=== PATIENT | female | born 1995 | race Caucasian/White ===

== ENCOUNTER 2019-05-06 05:22 | Emergency (ER) | payer SELFPAY ==
[~2019-05-06] VITALS: Ht 157.5 cm; Wt 49.9 kg
--- NOTE | 2019-05-06 05:28 | NUR ---
PT BIB SELF C/C LOWER ABD PAIN SINCE MIDNIGHT, +N/+V, PT IS AAOX4, NOT IN RESPIRATORY DISTRESS, VS STABLE, KEPT RESTED AND COMFORTABLE, WILL CONTINUE MONITOR.
--- NOTE | 2019-05-06 05:58 | NUR ---
URINE SPECIMEN COLLECTED AND SENT TO LAB.
[2019-05-06 06:02] LABS: APPEARANCE,URINE Cloudy (CLEAR); BILIRUBIN,URINE Negative (NEGATIVE); BLOOD, URINE Negative Ery/uL (NEGATIVE); COLOR,URINE Yellow (YELLOW); KETONES,URINE Negative (NEGATIVE); LEUKOCYTE ESTERASE ,URINE Negative (NEGATIVE); NITRITE, URINE Negative (NEGATIVE); PROTEIN,URINE 30 mg/dl (NEGATIVE); UGLUCOSE Negative (NEGATIVE); UROBILINOGEN,URINE 0.2 EU/dL (0.2)
[2019-05-06 06:05] LABS: PH,URINE >9.0 (5.0-8.0)
[2019-05-06 06:16] LABS: BACTERIA,URINE Rare /HPF (None Seen); RBC,URINE 0-2 /HPF (0-2); SQUAMOUS EPITHELIAL CELL,UR Rare /HPF (None Seen); URINE AMORPHOUS PHOSPHATES Many /HPF (None Seen); WBC,URINE 0-2 /HPF (0-3)
[2019-05-06] MEDS ORDERED: MORPHINE SULFATE INJ 4 MG/ML DISP.SYRIN ONE (06:17)
[2019-05-06] MEDS ORDERED: KETOROLAC TROMETHAMINE INJ 30 MG/ML VIAL ONE (06:17)
[2019-05-06] MEDS ORDERED: ONDANSETRON HCL/PF 4 MG/2 ML VIAL ONE (06:17)
[2019-05-06 06:27] LABS: BASOPHILS % (AUTO) 0.5 % (0.0-2.0); HEMATOCRIT 44 % (33-45); HEMOGLOBIN 15.2 g/dL (11.5-14.8); LYMPHOCYTES # (AUTO) 1.4 /CMM (0.8-4.8); LYMPHOCYTES % (AUTO) 17.2 % (20.0-44.0); MEAN CORPUSCULAR HGB CONC 34 g/dl (31.0-36.0); MEAN CORPUSCULAR VOLUME 92 fL (82-100); MONOCYTES # (AUTO) 0.7 /CMM (0.1-1.30); MONOCYTES % (AUTO) 8.9 % (2.0-12.0); NEUTROPHILS % (AUTO) 72.4 % (43.0-81.0); PLATELET COUNT (AUTO) 286 /CMM (150-450); RED BLOOD CELL COUNT(AUTO) 4.78 MIL/uL (4.0-5.2); WHITE BLOOD COUNT (AUTO) 8.3 K/uL (4.3-11.0)
[2019-05-06] MEDS ORDERED: IV NS 0.9% 1,000 ML BAG IV ONE (06:30)
[2019-05-06] MEDS ORDERED: ONDANSETRON HCL/PF 4 MG/2 ML VIAL IVP ONE (06:30)
[2019-05-06] MEDS ORDERED: MORPHINE SULFATE INJ 2 MG/ML DISP.SYRIN IV ONE (06:30)
[2019-05-06] MEDS ORDERED: KETOROLAC TROMETHAMINE INJ 30 MG/ML VIAL IV ONE (06:30)
--- NOTE | 2019-05-06 06:30 | NUR ---
IV LINE ESTABLISHED, BLOOD DRAWNED AND SENT TO LAB.
[2019-05-06 06:35] LABS: CALCIUM, SERUM 8.3 mg/dL (8.5-10.1); CREATININE 0.9 mg/dL (0.6-1.3); POTASSIUM 3.7 mmol/L (3.5-5.1)
--- NOTE | 2019-05-06 06:42 | NUR ---
TECH AT BEDSIDE FOR US.
[2019-05-06 06:43] LABS: ALBUMIN 3.7 g/dL (3.4-5.0); BILIRUBIN,DIRECT 0.1 mg/dL (0.0-0.2); BILIRUBIN,TOTAL 0.5 mg/dL (0.2-1.0); TOTAL PROTEIN, SERUM 7.3 g/dL (6.4-8.2)
[2019-05-06] MEDS ORDERED: HYDROMORPHONE 1 MG/1 ML DISP.SYRIN ONE (07:28)
[2019-05-06] MEDS ORDERED: HYDROMORPHONE 1 MG/1 ML DISP.SYRIN IV ONE (07:30)
--- NOTE | 2019-05-06 07:30 | NUR ---
PATIENT A/OX4, BREATHING EVEN AND UNLABORED, NO SOB NOTED, VSS. NAD. WILL CONTINUE TO MONITOR.
[2019-05-06] MEDS ORDERED: IV NS 0.9% 250 ML IV ONE (08:38)
[2019-05-06] MEDS ORDERED: IOHEXOL-300 100 ML VIAL IV ONE (08:38)
[2019-05-06] MEDS ORDERED: CT SWABBABLE VALVE TRANS SET 1 EA INFUS.SET MC ONE (08:38)
--- NOTE | 2019-05-06 09:40 | NUR ---
Piv removed, Rx provided, Patient discharged to home in stable condition. Written and verbal after care instructions given. Patient verbalizes understanding of instruction.
[2019-05-06 09:58] VITALS: BP 120/86
== END 2019-05-06 10:00 | disposition home or self-care (01) ==
LOC: ER 05:25
DX: N83.201 Unspecified ovarian cyst, right side (principal); R11.10 Vomiting, unspecified; R19.7 Diarrhea, unspecified; Z98.890 Other specified postprocedural states
CPT/HCPCS: 36415; 74177; 76856; 80048; 80076; 81001; 84703; 85025; 96361; 96374; 96375; 99284; J1170; J1885; J2270; J2405; J7030; J7050; Q9967; 81000-TC

== ENCOUNTER 2023-09-28 04:57 | Emergency (ER) | payer SELFPAY ==
[~2023-09-28] VITALS: Ht 157.5 cm; Wt 61.2 kg
[2023-09-28] MEDS ORDERED: ONDANSETRON HCL/PF 4 MG/2 ML VIAL ONE (05:17)
[2023-09-28] MEDS ORDERED: CEFTRIAXONE 1GM BAG (ER ONLY) 50 ML IV ONE (05:29)
[2023-09-28 05:30] LABS: BASOPHILS % (AUTO) 0.6 % (0.0-2.0); EOSINOPHILS % (AUTO) 0.7 % (0.0-6.0); HEMATOCRIT 43 % (33-45); HEMOGLOBIN 14.7 g/dL (11.5-14.8); LYMPHOCYTES # (AUTO) 2.2 K/uL (0.8-4.8); MEAN CORPUSCULAR HEMOGLOBIN 35 PG (26.0-33.0); MEAN CORPUSCULAR HGB CONC 34 g/dl (31.0-36.0); MEAN CORPUSCULAR VOLUME 102 fL (82-100); MONOCYTES # (AUTO) 0.7 K/uL (0.1-1.30); MONOCYTES % (AUTO) 11.5 % (2.0-12.0); NEUTROPHILS # (AUTO) 3.2 K/uL (1.8-8.9); NEUTROPHILS % (AUTO) 52.2 % (43.0-81.0); PLATELET COUNT (AUTO) 377 K/uL (150-450); RED BLOOD CELL COUNT(AUTO) 4.22 MIL/uL (4.0-5.2); RED CELL DISTRIBUTION WIDTH 13.7 % (11.5-15.0); WHITE BLOOD COUNT (AUTO) 6.2 K/uL (4.3-11.0)
[2023-09-28] MEDS ORDERED: CEFTRIAXONE 1GM BAG (ER ONLY) 1 GM/50 ML PIGGYBACK IV ONE (05:30)
[2023-09-28] MEDS ORDERED: ONDANSETRON HCL/PF 4 MG/2 ML VIAL IVP ONE (05:30)
[2023-09-28] MEDS ORDERED: IV NS 0.9% 1,000 ML BAG IV ONE (05:30)
[2023-09-28 05:36] LABS: CALCIUM, SERUM 9.5 mg/dL (8.5-10.1); CREATININE 0.7 mg/dL (0.6-1.3)
[2023-09-28 05:37] LABS: POTASSIUM 2.7 mmol/L (3.5-5.1)
[2023-09-28 05:42] LABS: ALBUMIN 4.1 g/dL (3.4-5.0); BILIRUBIN,DIRECT 0.3 mg/dL (0.0-0.2); BILIRUBIN,TOTAL 0.7 mg/dL (0.2-1.0); TOTAL PROTEIN, SERUM 7.6 g/dL (6.4-8.2)
[2023-09-28] MEDS ORDERED: MORPHINE SULFATE INJ 4 MG/ML DISP.SYRIN ONE (05:46)
[2023-09-28] MEDS ORDERED: METOCLOPRAMIDE HCL 10 MG/2 ML VIAL ONE (05:47)
[2023-09-28] MEDS ORDERED: POTASSIUM CL. PREMIX PERIPHER. 50 ML ONE ×2 (05:59→06:35)
[2023-09-28] MEDS ORDERED: POTASSIUM CHLORIDE 20 MEQ TAB.PRT.SR PO ONE ×2 (06:00)
[2023-09-28] MEDS ORDERED: MORPHINE SULFATE INJ 2 MG/ML DISP.SYRIN IV ONE (06:00)
[2023-09-28] MEDS ORDERED: METOCLOPRAMIDE HCL 10 MG/2 ML VIAL IV ONE (06:00)
[2023-09-28] MEDS: POTASSIUM CL. PREMIX PERIPHER. 50 ML IV SCH ×2 (06:10→07:37)
[2023-09-28 07:18] LABS: APPEARANCE,URINE SLIGHTLY CLOUDY (CLEAR); BILIRUBIN,URINE NEGATIVE (NEGATIVE); BLOOD, URINE 2+ Ery/uL (NEGATIVE); COLOR,URINE YELLOW (YELLOW); KETONES,URINE NEGATIVE (NEGATIVE); LEUKOCYTE ESTERASE ,URINE NEGATIVE (NEGATIVE); NITRITE, URINE NEGATIVE (NEGATIVE); PH,URINE 7.5 (5.0-8.0); PROTEIN,URINE NEGATIVE (NEGATIVE); UGLUCOSE NEGATIVE (NEGATIVE); UROBILINOGEN,URINE 0.2 EU/dL (0.2)
[2023-09-28 07:20] LABS: PREGNANCY TEST URINE QUAL NEGATIVE (NEGATIVE)
[2023-09-28 08:00] LABS: ADD URINE CULTURE NO; BACTERIA,URINE Few /HPF (None Seen); SQUAMOUS EPITHELIAL CELL,UR Many /HPF (None Seen); WBC,URINE 0-2 /HPF (0-3)
[2023-09-28] MEDS ORDERED: ONDA4TAB5 PO (10:58)
[2023-09-28] MEDS ORDERED: PHEN-704 PO (10:58)
[2023-09-28] MEDS ORDERED: IBUP-1955 PO (10:58)
[2023-09-28 11:25] VITALS: BP 130/76; TEMP 98.6; O2SAT 100
== END 2023-09-28 11:28 | disposition home or self-care (01) ==
LOC: ER 05:16
DX: R35.0 Frequency of micturition (principal); R31.9 Hematuria, unspecified; R10.2 Pelvic and perineal pain; R10.9 Unspecified abdominal pain; R30.0 Dysuria; R11.2 Nausea with vomiting, unspecified; Z60.2 Problems related to living alone
CPT/HCPCS: 99285; 74176; 96365; 96366; 96375; 76705; 96368; 85025; 80048; 87086; 83690; 80076; 84703; 81001; 36415; J2270; J2765; J2405; J7030; J7040 ×2; J3480 ×2; A4223; J0696

== ENCOUNTER 2024-10-01 00:18 | Emergency (ER) | payer SELFPAY ==
[~2024-10-01] VITALS: Ht 157.5 cm; Wt 56.7 kg
[~2024-10-01 00:18] MED LIST: IBUP-1955 PO; ONDA4TAB5 PO; PHEN-704 PO
[2024-10-01 01:35] VITALS: TEMP 98.1
[2024-10-01 02:26] LABS: BASOPHILS % (AUTO) 0.7 % (0.0-2.0); EOSINOPHILS % (AUTO) 0.3 % (0.0-6.0); HEMATOCRIT 47 % (33-45); LYMPHOCYTES # (AUTO) 1.3 K/uL (0.8-4.8); LYMPHOCYTES % (AUTO) 18.6 % (20.0-44.0); MEAN CORPUSCULAR HEMOGLOBIN 36 PG (26.0-33.0); MEAN CORPUSCULAR HGB CONC 34 g/dl (31.0-36.0); MEAN CORPUSCULAR VOLUME 104 fL (82-100); MONOCYTES # (AUTO) 0.7 K/uL (0.1-1.30); MONOCYTES % (AUTO) 10.2 % (2.0-12.0); NEUTROPHILS # (AUTO) 4.9 K/uL (1.8-8.9); NEUTROPHILS % (AUTO) 70.2 % (43.0-81.0); PLATELET COUNT (AUTO) 312 K/uL (150-450); RED BLOOD CELL COUNT(AUTO) 4.47 MIL/uL (4.0-5.2); RED CELL DISTRIBUTION WIDTH 13.7 % (11.5-15.0)
[2024-10-01] MEDS ORDERED: HALOPERIDOL LACTATE INJ 5 MG/ML VIAL ONE (02:31)
[2024-10-01] MEDS ORDERED: MORPHINE SULFATE INJ 4 MG/ML DISP.SYRIN ONE (02:31)
[2024-10-01] MEDS: MORPHINE SULFATE INJ 2 MG/ML DISP.SYRIN IV ONE (02:44)
[2024-10-01] MEDS: HALOPERIDOL LACTATE INJ 5 MG/ML VIAL IV ONE (02:44)
[2024-10-01] MEDS: IV NS 0.9% 1,000 ML BAG IV ONE ×2 (02:44→04:00)
[2024-10-01 02:47] LABS: APPEARANCE,URINE SLIGHTLY CLOUDY (CLEAR); BILIRUBIN,URINE NEGATIVE (NEGATIVE); BLOOD, URINE NEGATIVE Ery/uL (NEGATIVE); COLOR,URINE YELLOW (YELLOW); KETONES,URINE TRACE mg/dL (NEGATIVE); LEUKOCYTE ESTERASE ,URINE 1+ (NEGATIVE); NITRITE, URINE NEGATIVE (NEGATIVE); PH,URINE 7.5 (5.0-8.0); PROTEIN,URINE NEGATIVE (NEGATIVE); UGLUCOSE NEGATIVE (NEGATIVE); UROBILINOGEN,URINE 0.2 EU/dL (0.2)
[2024-10-01 02:58] LABS: PREGNANCY TEST URINE QUAL NEGATIVE (NEGATIVE)
[2024-10-01 03:00] LABS: ADD URINE CULTURE YES; BACTERIA,URINE 3+ /HPF (None Seen); RBC,URINE NONE SEEN /HPF (0-2)
[2024-10-01 03:00] LABS: ALANINE AMINOTRANSFERASE 133 U/L (12-78); ALBUMIN 4.3 g/dL (3.4-5.0); ALKALINE PHOSPHATASE 111 U/L (46-116); ASPARTATE AMINOTRANSFERASE 196 U/L (15-37); BILIRUBIN,DIRECT 0.2 mg/dL (0.0-0.2); BILIRUBIN,TOTAL 1.2 mg/dL (0.2-1.0); CARBON DIOXIDE 23 mmol/L (21-32); CHLORIDE 98 mmol/L (98-107); CREATININE 0.6 mg/dL (0.6-1.3); GLUCOSE 86 mg/dL (74-106); LIPASE 26 U/L (16-77); POTASSIUM 3.9 mmol/L (3.5-5.1); SODIUM SERUM 138 mmol/L (136-145); UREA NITROGEN, BLOOD 3 mg/dL (7-18)
[2024-10-01 03:08] LABS: CALCIUM, SERUM 9.7 mg/dL (8.5-10.1)
[2024-10-01] MEDS ORDERED: IOHEXOL-350 100 ML VIAL IV ONE (03:17)
[2024-10-01] MEDS ORDERED: IV NS 0.9% 250 ML IV ONE (03:17)
[2024-10-01] MEDS ORDERED: CT SWABBABLE VALVE TRANS SET 1 EA INFUS.SET MC ONE (03:17)
[2024-10-01] MEDS ORDERED: PRED50TA PO (04:52)
[2024-10-01] MEDS ORDERED: METR-147 PO (04:52)
[2024-10-01] MEDS ORDERED: KETO10TA2 PO (04:52)
[2024-10-01] MEDS ORDERED: ONDA4TAB11 PO (04:52)
[2024-10-01] MEDS ORDERED: ONDANSETRON HCL/PF 4 MG/2 ML VIAL ONE (06:03)
[2024-10-01] MEDS: ONDANSETRON HCL/PF - ER 4 MG/2 ML VIAL IV ONE (06:06)
[2024-10-01 07:02] VITALS: BP 149/80; O2SAT 98
== END 2024-10-01 07:02 | disposition home or self-care (01) ==
LOC: ER 00:24
DX: K52.9 Noninfective gastroenteritis and colitis, unspecified (principal); E28.2 Polycystic ovarian syndrome; R94.31 Abnormal electrocardiogram [ECG] [EKG]; Z79.52 Long term (current) use of systemic steroids; Z60.2 Problems related to living alone
CPT/HCPCS: 99285; 74177; 96374; 76856; 96361; 96375; 93005; 85025; 80048; 83605 ×2; 83690; 80076; 84703; 81001; 36415; J1630; J2270; J2405 ×2; J7030 ×2; J7050; A4223; Q9967

== ENCOUNTER 2024-10-11 03:48 | Inpatient (IN) | payer MEDICAID ==
[~2024-10-11] VITALS: Ht 157.5 cm; Wt 56.7 kg
[~2024-10-11 03:48] MED LIST changes: +KETO10TA2 PO; +METR-147 PO; +ONDA4TAB11 PO; +PRED50TA PO
[2024-10-11] MEDS ORDERED: MORPHINE SULFATE INJ 4 MG/ML DISP.SYRIN ONE (04:39)
[2024-10-11] MEDS ORDERED: ONDANSETRON HCL/PF 4 MG/2 ML VIAL ONE ×5 (04:39→13:16)
[2024-10-11] MEDS: MORPHINE SULFATE INJ 2 MG/ML DISP.SYRIN IV ONE (04:51)
[2024-10-11 04:53] LABS: BASOPHILS % (AUTO) 0.4 % (0.0-2.0); HEMATOCRIT 47 % (33-45); LYMPHOCYTES # (AUTO) 0.7 K/uL (0.8-4.8); LYMPHOCYTES % (AUTO) 7.8 % (20.0-44.0); MEAN CORPUSCULAR HEMOGLOBIN 36 PG (26.0-33.0); MEAN CORPUSCULAR HGB CONC 34 g/dl (31.0-36.0); MEAN CORPUSCULAR VOLUME 106 fL (82-100); MONOCYTES # (AUTO) 0.9 K/uL (0.1-1.30); MONOCYTES % (AUTO) 11.2 % (2.0-12.0); NEUTROPHILS # (AUTO) 6.8 K/uL (1.8-8.9); NEUTROPHILS % (AUTO) 80.6 % (43.0-81.0); PLATELET COUNT (AUTO) 335 K/uL (150-450); RED BLOOD CELL COUNT(AUTO) 4.44 MIL/uL (4.0-5.2); RED CELL DISTRIBUTION WIDTH 13.8 % (11.5-15.0); WHITE BLOOD COUNT (AUTO) 8.5 K/uL (4.3-11.0)
[2024-10-11] MEDS: IV NS 0.9% 1,000 ML BAG IV ONE (04:53)
[2024-10-11] MEDS: ONDANSETRON HCL/PF 4 MG/2 ML VIAL IVP ONE (04:53)
[2024-10-11 05:06] LABS: APPEARANCE,URINE Slightly Cloudy (CLEAR); BILIRUBIN,URINE SMALL (NEGATIVE); BLOOD, URINE Large Ery/uL (NEGATIVE); COLOR,URINE YELLOW (YELLOW); KETONES,URINE >=160 mg/dL (NEGATIVE); LEUKOCYTE ESTERASE ,URINE Trace (NEGATIVE); NITRITE, URINE Positive (NEGATIVE); PH,URINE 6.5 (5.0-8.0); PREGNANCY TEST URINE QUAL NEGATIVE (NEGATIVE); PROTEIN,URINE 100 mg/dl (NEGATIVE); UGLUCOSE Negative (NEGATIVE)
[2024-10-11 05:11] LABS: INR 1.03 (0.91-1.10); PROTHROMBIN TIME 10.6 SECS (9.2-11.1)
[2024-10-11 05:13] LABS: ALBUMIN 4.1 g/dL (3.4-5.0); BILIRUBIN,DIRECT 0.6 mg/dL (0.0-0.2); BILIRUBIN,TOTAL 1.7 mg/dL (0.2-1.0); CALCIUM, SERUM 9.2 mg/dL (8.5-10.1); CREATININE 0.9 mg/dL (0.6-1.3); PARTIAL THROMBOPLASTIN TIME 19.2 SEC (24.3-34.3); TOTAL PROTEIN, SERUM 8.2 g/dL (6.4-8.2)
[2024-10-11 05:14] LABS: POTASSIUM 2.7 mmol/L (3.5-5.1)
[2024-10-11] MEDS: ONDANSETRON HCL/PF 4 MG/2 ML VIAL IV ONE (05:14)
[2024-10-11 05:17] LABS: ADD URINE CULTURE YES; BACTERIA,URINE 4+ /HPF (None Seen); RBC,URINE 51-80 /HPF (0-2)
[2024-10-11 05:18] LABS: MUCUS,URINE Many /LPF (None Seen); SQUAMOUS EPITHELIAL CELL,UR Many /HPF (None Seen)
[2024-10-11] MEDS ORDERED: POTASSIUM CL. PREMIX PERIPHER. 50 ML ONE ×4 (05:20→08:35)
[2024-10-11] MEDS: POTASSIUM CHLORIDE 10 MEQ/50 ML PREMIXED IVPB FOR PERIPHERAL LINE IV ONE (05:27)
[2024-10-11] MEDS: CEFTRIAXONE 1GM BAG (ER ONLY) 1 GM/50 ML PIGGYBACK IV ONE (06:14)
[2024-10-11] MEDS ORDERED: Z GUARD REMEDY 4 OZ OINT TP PRN (06:30)
[2024-10-11] MEDS ORDERED: ONDA-97 PO (07:31)
[2024-10-11] MEDS ORDERED: IBUP-1957 PO (07:31)
[2024-10-11 07:53] LABS: AMPHETAMINE, URINE NEGATIVE (NEGATIVE); BARBITURATE, URINE NEGATIVE (NEGATIVE); BENZODIAZEPINE, URINE NEGATIVE (NEGATIVE); CANNABINOID, URINE POSITIVE (NEGATIVE); COCCAINE, URINE NEGATIVE (NEGATIVE); OPIATE, URINE NEGATIVE (NEGATIVE); PHENCYCLIDINE SCREEN,URINE NEGATIVE (NEGATIVE)
[2024-10-11] MEDS ORDERED: PANTOPRAZOLE 40 MG VIAL ONE (08:34)
[2024-10-11] MEDS: PANTOPRAZOLE 40 MG VIAL IV SCH (09:00)
[2024-10-11] MEDS ORDERED: POTASSIUM CHLORIDE 20 MEQ TAB.PRT.SR PO ONE (09:44)
[2024-10-11] MEDS ORDERED: MORPHINE SULFATE INJ 2 MG/ML DISP.SYRIN ONE (09:44)
[2024-10-11] MEDS: POTASSIUM CHLORIDE 20 MEQ TAB.PRT.SR PO ONE ×3 (10:00→16:00)
[2024-10-11] MEDS: IV NS 0.9% 1,000 ML IV PRN ×2 (10:00→21:34)
[2024-10-11] MEDS: ONDANSETRON HCL/PF 4 MG/2 ML VIAL IVP PRN (10:00)
[2024-10-11] MEDS ORDERED: HYDROCODONE/APAP 5/325MG TABLET PO PRN (10:00)
[2024-10-11] MEDS: MORPHINE SULFATE INJ 2 MG/ML DISP.SYRIN IV PRN (10:02)
[2024-10-11] MEDS: POTASSIUM CL. PREMIX PERIPHER. 50 ML IV SCH (18:00)
[2024-10-11] MEDS ORDERED: METOCLOPRAMIDE HCL 10 MG/2 ML VIAL IV PRN (18:30)
[2024-10-11] MEDS: HALOPERIDOL LACTATE INJ 5 MG/ML VIAL IM ONE (19:01)
[2024-10-11 20:00] VITALS: BP 105/59; TEMP 98.2; O2SAT 100
[2024-10-12 04:00] VITALS: BP 105/59; TEMP 98.2; O2SAT 100
[2024-10-12] MEDS: CEFTRIAXONE 1 G in IV D5W 50 ML IV SCH (05:35)
[2024-10-12 09:16] LABS: CALCIUM, SERUM 8.1 mg/dL (8.5-10.1); CREATININE 0.5 mg/dL (0.6-1.3); MAGNESIUM 1.7 mg/dL (1.8-2.4); PHOSPHORUS 3.1 mg/dL (2.5-4.9); POTASSIUM 3.2 mmol/L (3.5-5.1)
[2024-10-12 09:18] LABS: BASOPHILS % (AUTO) 0.3 % (0.0-2.0); HEMATOCRIT 40 % (33-45); HEMOGLOBIN 13.4 g/dL (11.5-14.8); LYMPHOCYTES # (AUTO) 0.9 K/uL (0.8-4.8); LYMPHOCYTES % (AUTO) 16.1 % (20.0-44.0); MEAN CORPUSCULAR HEMOGLOBIN 36 PG (26.0-33.0); MEAN CORPUSCULAR HGB CONC 34 g/dl (31.0-36.0); MEAN CORPUSCULAR VOLUME 106 fL (82-100); MONOCYTES # (AUTO) 0.7 K/uL (0.1-1.30); MONOCYTES % (AUTO) 12.2 % (2.0-12.0); NEUTROPHILS # (AUTO) 4.1 K/uL (1.8-8.9); NEUTROPHILS % (AUTO) 71.4 % (43.0-81.0); PLATELET COUNT (AUTO) 230 K/uL (150-450); RED BLOOD CELL COUNT(AUTO) 3.77 MIL/uL (4.0-5.2); RED CELL DISTRIBUTION WIDTH 13.8 % (11.5-15.0); WHITE BLOOD COUNT (AUTO) 5.8 K/uL (4.3-11.0)
[2024-10-12] MEDS: CHLORDIAZEPOXIDE HCL 25 MG CAPSULE PO PRN (09:23)
[2024-10-12 10:18] VITALS: BP 110/60; TEMP 98.3; O2SAT 100
[2024-10-12 10:51] LABS: LYMPHOCYTES % (MANUAL) 20 % (16-48); MONOCYTES % (MANUAL) 12 % (0-11.0); NEUTROPHILS % (MANUAL) 68 (42-76); PLATELET ESTIMATE ADEQUATE
[2024-10-12] MEDS: POTASSIUM CHLORIDE 20 MEQ TAB.PRT.SR PO ONE ×2 (13:04→16:27)
[2024-10-12] MEDS: Magnesium 1GM/D5W 100ML PREMIX 100 ML IV SCH (13:04)
[2024-10-12 16:02] VITALS: BP 112/65; TEMP 98.2; O2SAT 100
== END 2024-10-12 21:10 | disposition left against medical advice (07) | DRG 463 ==
LOC: ER 03:50 → TELE1 13:11 → MEDSG1 14:20
PROVIDERS: ADMIT Nurse Practitioner Acute Care; ATTEND Nurse Practitioner Acute Care
PROC: 05HC33Z Insertion of Infusion Device into Left Basilic Vein, Percutaneous Approach (ICD-10-PCS; principal; 2024-10-11)
PROC: B54NZZA Ultrasonography of Left Upper Extremity Veins, Guidance (ICD-10-PCS; 2024-10-11)
DX: N39.0 Urinary tract infection, site not specified (principal); E87.20 Acidosis, unspecified; K76.0 Fatty (change of) liver, not elsewhere classified; F12.99 Cannabis use, unspecified with unspecified cannabis-induced disorder; R11.2 Nausea with vomiting, unspecified; E83.42 Hypomagnesemia; K70.0 Alcoholic fatty liver; E87.6 Hypokalemia; F17.210 Nicotine dependence, cigarettes, uncomplicated; E28.2 Polycystic ovarian syndrome; Z71.6 Tobacco abuse counseling; R74.01 Elevation of levels of liver transaminase levels; E80.6 Other disorders of bilirubin metabolism; F10.10 Alcohol abuse, uncomplicated; Y90.2 Blood alcohol level of 40-59 mg/100 ml; R16.0 Hepatomegaly, not elsewhere classified; B96.89 Other specified bacterial agents as the cause of diseases classified elsewhere
CPT/HCPCS: 36415; 76856-TC; 80048-TC; 80076-TC; 81001; 83690-TC; 83735-TC; 84100-TC; 84703-TC; 85025-TC; 85730-TC; A4223; G0378; G0480; J0696; J1630; J2270; J2405; J2470; J3475; J3480; J7030; J7040; J7060

== ENCOUNTER 2024-12-02 23:07 | Inpatient (IN) | payer SELFPAY ==
[~2024-12-02] VITALS: Ht 157.5 cm; Wt 59.0 kg
[~2024-12-02 23:07] MED LIST changes: -IBUP-1955 PO; +IBUP-1957 PO; -KETO10TA2 PO; -METR-147 PO; +ONDA-97 PO; -ONDA4TAB11 PO; -ONDA4TAB5 PO; -PHEN-704 PO; -PRED50TA PO
[2024-12-03] MEDS ORDERED: ONDANSETRON HCL/PF 4 MG/2 ML VIAL ONE ×3 (00:13→04:41)
[2024-12-03] MEDS: ONDANSETRON HCL/PF - ER 4 MG/2 ML VIAL IV ONE ×3 (00:14→04:41)
[2024-12-03 00:17] LABS: BASOPHILS % (AUTO) 0.4 % (0.0-2.0); EOSINOPHILS % (AUTO) 0.2 % (0.0-6.0); HEMATOCRIT 46 % (33-45); HEMOGLOBIN 16.2 g/dL (11.5-14.8); LYMPHOCYTES # (AUTO) 0.9 K/uL (0.8-4.8); LYMPHOCYTES % (AUTO) 8.4 % (20.0-44.0); MEAN CORPUSCULAR HEMOGLOBIN 37 PG (26.0-33.0); MEAN CORPUSCULAR HGB CONC 35 g/dl (31.0-36.0); MEAN CORPUSCULAR VOLUME 103 fL (82-100); MONOCYTES # (AUTO) 0.9 K/uL (0.1-1.30); MONOCYTES % (AUTO) 8.7 % (2.0-12.0); NEUTROPHILS # (AUTO) 8.8 K/uL (1.8-8.9); NEUTROPHILS % (AUTO) 82.3 % (43.0-81.0); PLATELET COUNT (AUTO) 292 K/uL (150-450); RED BLOOD CELL COUNT(AUTO) 4.43 MIL/uL (4.0-5.2); RED CELL DISTRIBUTION WIDTH 14.2 % (11.5-15.0); WHITE BLOOD COUNT (AUTO) 10.7 K/uL (4.3-11.0)
[2024-12-03 00:19] LABS: APPEARANCE,URINE TURBID (CLEAR); BILIRUBIN,URINE NEGATIVE (NEGATIVE); BLOOD, URINE NEGATIVE Ery/uL (NEGATIVE); COLOR,URINE DARK YELLOW (YELLOW); KETONES,URINE 3+ mg/dL (NEGATIVE); LEUKOCYTE ESTERASE ,URINE NEGATIVE (NEGATIVE); NITRITE, URINE NEGATIVE (NEGATIVE); PROTEIN,URINE 2+ mg/dl (NEGATIVE); UGLUCOSE NEGATIVE (NEGATIVE); UROBILINOGEN,URINE 0.2 EU/dL (0.2)
[2024-12-03 00:25] LABS: ADD URINE CULTURE YES; BACTERIA,URINE Many /HPF (None Seen); RBC,URINE 0-2 /HPF (0-2); SQUAMOUS EPITHELIAL CELL,UR Many /HPF (None Seen)
[2024-12-03 01:19] LABS: ALBUMIN 4.2 g/dL (3.4-5.0); BILIRUBIN,TOTAL 2.1 mg/dL (0.2-1.0); CALCIUM, SERUM 9.8 mg/dL (8.5-10.1); CREATININE 0.7 mg/dL (0.6-1.3); TOTAL PROTEIN, SERUM 8.1 g/dL (6.4-8.2)
[2024-12-03 01:30] LABS: POTASSIUM 2.8 mmol/L (3.5-5.1)
[2024-12-03] MEDS ORDERED: POTASSIUM CL. PREMIX PERIPHER. 100 ML ONE (01:42)
[2024-12-03] MEDS: POTASSIUM CL. PREMIX PERIPHER. 50 ML IV SCH ×2 (01:50→10:38)
[2024-12-03] MEDS: IV NS 0.9% 1,000 ML IV ONE ×2 (01:57→03:32)
[2024-12-03 02:34] LABS: ALCOHOL, BLOOD 22 mg/dL (0-10); MAGNESIUM 1.3 mg/dL (1.8-2.4)
[2024-12-03] MEDS ORDERED: Magnesium 1GM/D5W 100ML PREMIX 100 ML IV ONE (03:00)
[2024-12-03] MEDS: Magnesium 1GM/D5W 100ML PREMIX 100 ML IV SCH ×2 (03:01→08:39)
[2024-12-03 03:11] LABS: LACTIC ACID 5.9 mmol/L (0.4-2.0)
[2024-12-03] MEDS ORDERED: CEFTRIAXONE 1GM BAG (ER ONLY) 50 ML IV ONE (03:16)
[2024-12-03 03:27] LABS: AMPHETAMINE, URINE NEGATIVE (NEGATIVE); BARBITURATE, URINE NEGATIVE (NEGATIVE); BENZODIAZEPINE, URINE NEGATIVE (NEGATIVE); COCCAINE, URINE NEGATIVE (NEGATIVE); OPIATE, URINE NEGATIVE (NEGATIVE); PHENCYCLIDINE SCREEN,URINE NEGATIVE (NEGATIVE)
[2024-12-03 03:30] LABS: CANNABINOID, URINE POSITIVE (NEGATIVE)
[2024-12-03] MEDS: CEFTRIAXONE 1GM BAG (ER ONLY) 1 GM/50 ML PIGGYBACK IV ONE (03:32)
[2024-12-03 06:06] LABS: BILIRUBIN,DIRECT 0.7 mg/dL (0.0-0.2)
[2024-12-03 06:35] LABS: LACTIC ACID REFLEX 3.5 mmol/L (0.4-1.9)
[2024-12-03] MEDS: POTASSIUM CHLORIDE 20 MEQ TAB.PRT.SR PO SCH (07:00)
[2024-12-03] MEDS ORDERED: Magnesium 1GM/D5W 100ML PREMIX 100 ML IV SCH (07:00)
[2024-12-03] MEDS ORDERED: MAGNESIUM HYDROXIDE 30 ML UDC PO PRN (07:00)
[2024-12-03] MEDS ORDERED: ACETAMINOPHEN 325 MG TABLET PO PRN (07:00)
[2024-12-03] MEDS ORDERED: POTASSIUM CHLORIDE 20 MEQ TAB.PRT.SR PO ONE (07:27)
[2024-12-03] MEDS ORDERED: PANTOPRAZOLE 40 MG TABLET.DR PO SCH (07:30)
[2024-12-03 08:00] VITALS: BP 108/69; TEMP 98.6; O2SAT 99
[2024-12-03 08:30] VITALS: BP 108/69; TEMP 98.6; O2SAT 99
[2024-12-03] MEDS ORDERED: IBUP-1955 PO (08:30)
[2024-12-03] MEDS ORDERED: HALO2TAB2 PO (08:30)
[2024-12-03] MEDS: IV NS 0.9% 1,000 ML IV PRN (08:39)
[2024-12-03] MEDS: ONDANSETRON HCL/PF 4 MG/2 ML VIAL IVP PRN (09:05)
[2024-12-03] MEDS ORDERED: POTASSIUM CL. PREMIX PERIPHER. 50 ML IV SCH (10:00)
[2024-12-03] MEDS: PANTOPRAZOLE 40 MG VIAL IV SCH (10:37)
[2024-12-03] MEDS: MORPHINE SULFATE INJ 2 MG/ML DISP.SYRIN IV ONE (10:37)
[2024-12-03] MEDS: HALOPERIDOL 1 MG TABLET PO ONE (14:32)
[2024-12-03 16:00] VITALS: BP 105/72; TEMP 98.1; O2SAT 99
[2024-12-03 16:12] VITALS: BP 105/72; TEMP 98.1; O2SAT 99
[2024-12-03] MEDS: CHLORDIAZEPOXIDE HCL 25 MG CAPSULE PO SCH (17:24)
[2024-12-03 20:00] VITALS: BP 122/84; TEMP 98.1; O2SAT 97
[2024-12-03] MEDS: FAMOTIDINE/PF INJ 20 MG/2 ML VIAL IV SCH (21:31)
[2024-12-04 07:05] LABS: BASOPHILS % (AUTO) 0.6 % (0.0-2.0); EOSINOPHILS % (AUTO) 0.1 % (0.0-6.0); HEMATOCRIT 35 % (33-45); HEMOGLOBIN 12.4 g/dL (11.5-14.8); LYMPHOCYTES # (AUTO) 1.6 K/uL (0.8-4.8); LYMPHOCYTES % (AUTO) 28.3 % (20.0-44.0); MEAN CORPUSCULAR HEMOGLOBIN 36 PG (26.0-33.0); MEAN CORPUSCULAR HGB CONC 35 g/dl (31.0-36.0); MEAN CORPUSCULAR VOLUME 102 fL (82-100); MONOCYTES # (AUTO) 0.8 K/uL (0.1-1.30); MONOCYTES % (AUTO) 14.6 % (2.0-12.0); NEUTROPHILS # (AUTO) 3.1 K/uL (1.8-8.9); NEUTROPHILS % (AUTO) 56.4 % (43.0-81.0); PLATELET COUNT (AUTO) 228 K/uL (150-450); RED BLOOD CELL COUNT(AUTO) 3.46 MIL/uL (4.0-5.2); RED CELL DISTRIBUTION WIDTH 13.7 % (11.5-15.0); WHITE BLOOD COUNT (AUTO) 5.5 K/uL (4.3-11.0)
[2024-12-04 07:42] LABS: CALCIUM, SERUM 8.3 mg/dL (8.5-10.1); CREATININE 0.6 mg/dL (0.6-1.3); MAGNESIUM 2.1 mg/dL (1.8-2.4); PHOSPHORUS 3.4 mg/dL (2.5-4.9); POTASSIUM 3.2 mmol/L (3.5-5.1)
[2024-12-04 08:00] VITALS: BP 113/80; TEMP 98.1; O2SAT 97
[2024-12-04] MEDS: HALOPERIDOL 1 MG TABLET PO SCH (08:15)
[2024-12-04 08:27] LABS: LACTIC ACID 0.6 mmol/L (0.4-2.0)
[2024-12-04] MEDS: POTASSIUM CHLORIDE 20 MEQ TAB.PRT.SR PO SCH (10:38)
[2024-12-04] MEDS ORDERED: FAMO20TA80 PO (11:53)
[2024-12-04] MEDS ORDERED: FAMOTIDINE (20 MG) 20 MG TABLET PO SCH (21:00)
== END 2024-12-04 13:00 | disposition home or self-care (01) | DRG 392 ==
LOC: ER 23:10 → TRANSITION 12-03 06:03 → MED 12-03 06:06
PROVIDERS: ADMIT Nurse Practitioner Family; ATTEND Nurse Practitioner Family
DX: R11.2 Nausea with vomiting, unspecified (principal); E87.1 Hypo-osmolality and hyponatremia; E87.20 Acidosis, unspecified; N93.9 Abnormal uterine and vaginal bleeding, unspecified; E83.42 Hypomagnesemia; E87.6 Hypokalemia; K76.0 Fatty (change of) liver, not elsewhere classified; F41.9 Anxiety disorder, unspecified; R74.01 Elevation of levels of liver transaminase levels; F12.20 Cannabis dependence, uncomplicated
CPT/HCPCS: 36415; 76856-TC; 80048-TC; 80053-TC; 81001; 82248-TC; 83605-TC; 83690-TC; 83735-TC; 84100-TC; 84702-TC; 85025-TC; 87040-TC; A4223; G0378; G0480; J0696; J2270; J2405; J2470; J3475; J3480; J3490; J7030

== ENCOUNTER 2024-12-24 16:19 | Emergency (ER) | payer SELFPAY ==
[~2024-12-24] VITALS: Ht 157.5 cm; Wt 59.0 kg
[~2024-12-24 16:19] MED LIST changes: +FAMO20TA80 PO; +HALO2TAB2 PO; +IBUP-1955 PO; -IBUP-1957 PO
[2024-12-24] MEDS ORDERED: ONDANSETRON HCL/PF 4 MG/2 ML VIAL ONE ×2 (17:37→20:40)
[2024-12-24] MEDS: IV NS 0.9% 1,000 ML BAG IV ONE (17:45)
[2024-12-24] MEDS: ONDANSETRON HCL/PF 4 MG/2 ML VIAL IVP ONE (17:45)
[2024-12-24 17:46] LABS: BASOPHILS % (AUTO) 0.1 % (0.0-2.0); HEMATOCRIT 49 % (33-45); HEMOGLOBIN 16.2 g/dL (11.5-14.8); LYMPHOCYTES # (AUTO) 0.6 K/uL (0.8-4.8); LYMPHOCYTES % (AUTO) 4.3 % (20.0-44.0); MEAN CORPUSCULAR HEMOGLOBIN 35 PG (26.0-33.0); MEAN CORPUSCULAR HGB CONC 34 g/dl (31.0-36.0); MEAN CORPUSCULAR VOLUME 103 fL (82-100); MONOCYTES # (AUTO) 0.7 K/uL (0.1-1.30); MONOCYTES % (AUTO) 5.2 % (2.0-12.0); NEUTROPHILS # (AUTO) 11.7 K/uL (1.8-8.9); NEUTROPHILS % (AUTO) 90.4 % (43.0-81.0); PLATELET COUNT (AUTO) 357 K/uL (150-450); RED BLOOD CELL COUNT(AUTO) 4.71 MIL/uL (4.0-5.2); RED CELL DISTRIBUTION WIDTH 13.8 % (11.5-15.0)
[2024-12-24] MEDS ORDERED: FAMOTIDINE/PF INJ 20 MG/2 ML VIAL IV ONE (17:47)
[2024-12-24] MEDS ORDERED: diphenhydrAMINE HCL 50 MG/ML VIAL ONE (17:47)
[2024-12-24] MEDS: FAMOTIDINE/PF INJ 20 MG/2 ML VIAL IV ONE (17:53)
[2024-12-24] MEDS: diphenhydrAMINE HCL 50 MG/ML VIAL IV ONE (17:54)
[2024-12-24] MEDS ORDERED: HALOPERIDOL LACTATE INJ 5 MG/ML VIAL ONE (18:00)
[2024-12-24] MEDS: HALOPERIDOL LACTATE INJ 5 MG/ML VIAL IV ONE (18:03)
[2024-12-24 18:05] LABS: ALBUMIN 4.5 g/dL (3.4-5.0); BILIRUBIN,DIRECT 0.6 mg/dL (0.0-0.2); BILIRUBIN,TOTAL 1.6 mg/dL (0.2-1.0); CALCIUM, SERUM 9.5 mg/dL (8.5-10.1); CREATININE 0.9 mg/dL (0.6-1.3); TOTAL PROTEIN, SERUM 8.9 g/dL (6.4-8.2)
[2024-12-24 18:09] LABS: POTASSIUM 2.6 mmol/L (3.5-5.1)
[2024-12-24] MEDS ORDERED: POTASSIUM CHLORIDE 20 MEQ POWDER PACKET ONE (18:43)
[2024-12-24] MEDS ORDERED: POTASSIUM CL. PREMIX PERIPHER. 50 ML ONE ×2 (18:43→19:54)
[2024-12-24] MEDS: POTASSIUM CL. PREMIX PERIPHER. 50 ML IV SCH (18:55)
[2024-12-24] MEDS: POTASSIUM CHLORIDE 20 MEQ POWDER PACKET PO ONE (19:00)
[2024-12-24] MEDS ORDERED: ONDA4TAB5 PO (19:00)
[2024-12-24] MEDS: ONDANSETRON HCL/PF - ER 4 MG/2 ML VIAL IV ONE (20:42)
[2024-12-24 21:07] VITALS: BP 135/87; TEMP 97.9; O2SAT 98
== END 2024-12-24 21:07 | disposition home or self-care (01) ==
LOC: ER 16:42
DX: R11.2 Nausea with vomiting, unspecified (principal); R56.9 Unspecified convulsions; F19.10 Other psychoactive substance abuse, uncomplicated; R10.2 Pelvic and perineal pain; Z60.2 Problems related to living alone; Z88.8 Allergy status to other drugs, medicaments and biological substances; Z79.899 Other long term (current) drug therapy
CPT/HCPCS: 99284; 96365; 96375; 96361; 96376; 85025; 80048; 83690; 80076; 84702; J1200; J1630; J3490; J2405 ×3; J3480 ×2; A4223

== ENCOUNTER 2025-01-16 11:24 | Emergency (ER) | payer MEDICAID ==
[~2025-01-16] VITALS: Ht 157.5 cm; Wt 56.7 kg
[~2025-01-16 11:24] MED LIST changes: +ONDA4TAB5 PO
[2025-01-16] MEDS ORDERED: LORAZEPAM INJ 2 MG/ML VIAL ONE (11:41)
[2025-01-16] MEDS: LEVETIRACETAM (500MG) 500 MG in IV NS 0.9% 100 ML IV ONE (11:52)
[2025-01-16] MEDS: LORAZEPAM INJ 2 MG/ML VIAL IVP ONE (11:53)
[2025-01-16] MEDS: IV NS 0.9% 500 ML BAG IV ONE (11:53)
[2025-01-16 12:38] LABS: BASOPHILS % (AUTO) 0.5 % (0.0-2.0); EOSINOPHILS % (AUTO) 0.1 % (0.0-6.0); HEMATOCRIT 51 % (33-45); HEMOGLOBIN 17.6 g/dL (11.5-14.8); LYMPHOCYTES # (AUTO) 0.5 K/uL (0.8-4.8); LYMPHOCYTES % (AUTO) 7.9 % (20.0-44.0); MEAN CORPUSCULAR HEMOGLOBIN 35 PG (26.0-33.0); MEAN CORPUSCULAR HGB CONC 34 g/dl (31.0-36.0); MEAN CORPUSCULAR VOLUME 102 fL (82-100); MONOCYTES # (AUTO) 0.4 K/uL (0.1-1.30); MONOCYTES % (AUTO) 5.5 % (2.0-12.0); NEUTROPHILS # (AUTO) 5.9 K/uL (1.8-8.9); PLATELET COUNT (AUTO) 320 K/uL (150-450); RED BLOOD CELL COUNT(AUTO) 5.02 MIL/uL (4.0-5.2); RED CELL DISTRIBUTION WIDTH 13.7 % (11.5-15.0); WHITE BLOOD COUNT (AUTO) 6.8 K/uL (4.3-11.0)
[2025-01-16 12:49] LABS: CALCIUM, SERUM 9.5 mg/dL (8.5-10.1); CREATININE 0.6 mg/dL (0.6-1.3); POTASSIUM 3.7 mmol/L (3.5-5.1)
[2025-01-16] MEDS ORDERED: ONDANSETRON HCL/PF 4 MG/2 ML VIAL ONE (13:02)
[2025-01-16] MEDS: ONDANSETRON HCL/PF 4 MG/2 ML VIAL IV ONE (13:09)
[2025-01-16] MEDS ORDERED: LORA-259 PO (13:30)
[2025-01-16] MEDS ORDERED: LEVE250T2 PO (13:30)
[2025-01-16] MEDS ORDERED: ONDA4TAB5 PO (13:30)
[2025-01-16 14:03] VITALS: BP 114/80; TEMP 97.9; O2SAT 100
[2025-01-16 15:38] LABS: PREGNANCY TEST URINE QUAL NEGATIVE (NEGATIVE)
== END 2025-01-16 14:05 | disposition home or self-care (01) ==
LOC: ER 11:26
DX: R11.15 Cyclical vomiting syndrome unrelated to migraine (principal); R56.9 Unspecified convulsions; Z79.899 Other long term (current) drug therapy; Z60.2 Problems related to living alone
CPT/HCPCS: 99285; 96365; 70450; 96375; 85025; 80048; 36415; 84703 ×2; J2060; J2405; J7030; J7040; J1953